=== PATIENT | male | born 1985 | race African-American/Black ===

== ENCOUNTER 2017-05-31 17:13 | Emergency (ER) | payer SELFPAY ==
[2017-05-31] MEDS ORDERED: Ibuprofen 200 MG TAB ONE (17:22)
[2017-05-31] MEDS ORDERED: Bicillin LA 1.2 MILLION UNITS/2 ML SYRINGE ONE (17:26)
== END 2017-05-31 18:18 | disposition home or self-care (01) ==
LOC: ERS 17:13
DX: J02.9 Acute pharyngitis, unspecified (principal); F17.210 Nicotine dependence, cigarettes, uncomplicated
CPT/HCPCS: 96372; J0561

== ENCOUNTER 2017-11-05 12:25 | Emergency (ER) | payer SELFPAY | END 2017-11-05 13:10 | disposition home or self-care (01) | LOC: ERS 12:25 | DX: J30.2 Other seasonal allergic rhinitis (principal); F17.210 Nicotine dependence, cigarettes, uncomplicated | CPT/HCPCS: 99283 ==